=== PATIENT | female | born 1965 | race American Indian/Alaskan Native ===

== ENCOUNTER 2016-11-24 15:12 | Outpatient (CLI) | payer BC, MEDICAID ==
--- NOTE | 2016-11-25 08:27 | Mammography Report ---
BILATERAL MAMMOGRAM: FINDINGS: The breast tissue is heterogeneously dense, which could obscure detection of small masses (approximately 50%-75% glandular). No mass, distortion, suspicious calcification, or skin change is seen. There are no significant changes compared to the prior exam in November 2015. CAD was utilized. IMPRESSION: Negative mammogram. There is no mammographic evidence of malignancy. RECOMMENDATION: Follow-up per ACS guidelines. BI-RADS CATEGORY: 1 = Negative ACR BI-RADS MAMMOGRAPHIC CODES: 0 = Needs additional imaging evaluation; 1 = Negative; 2 = Benign; 3 = Probably benign; 4 = Suspicious; 5 = Malignant; 6 = Known biopsy-proven malignancy COMMENT: 1. Dense breast tissue, i.e., adenosis, fibrocystic changes, etc., may obscure an underlying neoplasm. 2. Approximately 10% of cancers are not detected with mammography. 3. A negative mammography report should not delay biopsy if a clinically suspicious mass is present. COMMENT: Patient follow-up letters are generated in [employer].
== END 2016-11-24 15:13 | disposition home or self-care (01) ==
LOC: SPVWC 15:12
PROVIDERS: ATTEND Obstetrics & Gynecology
DX: Z12.31 Encounter for screening mammogram for malignant neoplasm of breast (principal)
CPT/HCPCS: 77067; G0202

== ENCOUNTER 2017-06-14 09:41 | Day surgery (SDC) | payer BC ==
--- NOTE | 2017-06-14 09:36 | Short Stay Summary ---
Short Stay Documentation Date of service: 06/14/17 Narrative H&P: 51-year-old presents with a history of dysfunctional uterine bleeding. The patient has experienced approximately 6 weeks of daily vaginal bleeding that has been unresponsive to medical management. She has a history of abnormal bleeding in the past that resolved spontaneously. Her preoperative workup included endometrial biopsy and the ultrasound that was without evidence of leiomyomas. The patient complains of recent fatigue and lethargy. - History Principal diagnosis: dysfunctional uterine bleeding Past Medical History: other (anxiety; iron deficiency anemia) Past Surgical History: , Other (laparoscopy) Social history: single - Allergies and Medications Current Medications: Allergies No Known Allergies Allergy (Verified 06/13/17 11:12) Home Medications Medication Instructions Recorded Confirmed Last Taken Type ALPRAZolam [Xanax] 0.25 mg PO PRN PRN 11/21/13 06/13/17 06/29/16 History Omeprazole [PriLOSEC] 40 mg PO QDAY 11/21/13 06/13/17 07/18/16 History 40 Integra Plus Capsule 1 tab PO DAILY 07/19/16 06/13/17 07/19/16 History Cholecalciferol Vit D3 [Vitamin D3] 1,000 unit PO QDAY 06/13/17 06/13/17 Unknown History Cod Liver Oil 1 each PO DAILY 06/13/17 06/13/17 Unknown History Docusate Sodium [Colace] 100 mg PO DAILY 06/13/17 06/13/17 Unknown History Multivitamin Tab [Multiple Vitamin 1 each PO QDAY 06/13/17 06/13/17 Unknown History TAB (Theragran)] Active Medications Famotidine (Pepcid) 20 mg PO PREOP NR Stop: 06/14/17 15:00 Sodium Chloride (Nacl 0.9% 1000 Ml) 1,000 mls @ 75 mls/hr IV DIRECT CORNELL Midazolam HCl (Versed) 2 mg IV PREOP NR Stop: 06/14/17 23:59 - Physical exam General appearance: no acute distress Integumentary: no rash HEENT: Atraumatic Lungs: Clear to auscultation Breasts: deferred Heart: Regular rate Gastrointestinal: normal - Brief post op/procedure progress note Date of procedure: 06/14/17 Pre-op diagnosis: dysfunctional uterine bleeding Post-op diagnosis: same Procedure: Hysteroscopy Dilatation and curettage Endometrial ablation via NovaSure Anesthesia: NIDHI Surgeon: JACOB DONALDSON Estimated blood loss: minimal Pathology: list (endometrial curettings) Specimen disposition: to lab Condition: stable - Hospital course Hospital course: The patient was admitted the day of surgery and underwent a hysteroscopy and NovaSure. Please see operative note for details of surgery. Her postoperative course was uneventful. - Disposition Condition at discharge: Good Disposition: DC-01 TO HOME OR SELFCARE Short Stay Discharge Plan Activity: other (pelvic rest for 2 weeks) Diet: regular Additional Instructions: Patient may follow up with Dr. Olivarez in 2 weeks Prescriptions: Ibuprofen [Motrin] 800 mg PO Q8HR PRN #60 tablet PRN Reason: Pain oxyCODONE /ACETAMINOPHEN [Percocet 5/325] 1 tab PO Q6HR PRN #30 tablet PRN Reason: Pain
[~2017-06-14 09:41] MED LIST: NACL 0.9% 1000 ML 1,000 ML IV SCH; PEPCID PO NR
--- NOTE | 2017-06-14 10:31 | Anesthesia Consultation ---
Anesthesia Consult and Med Hx Date of service: 06/14/17 - Airway Anesthetic Teeth Evaluation: Good ROM Head & Neck: Adequate Mental/Hyoid Distance: Adequate Mallampati Class: Class II Intubation Access Assessment: Probably Good - Pulmonary Exam CTA: Yes - Cardiac Exam Cardiac Exam: RRR - Pre-Operative Health Status ASA Pre-Surgery Classification: ASA2 Proposed Anesthetic Plan: General - Pulmonary Hx Smoking: Yes (FORMER) Hx Asthma: No Hx Respiratory Symptoms: No SOB: No COPD: No Hx Pneumonia: No Hx Sleep Apnea: No - Cardiovascular System Hx Hypertension: No Hx Coronary Artery Disease: No Hx Heart Attack/AMI: No Hx Angina: No Hx Percutaneous Transluminal Coronary Angioplasty (PTCA): No Hx Cardia Arrhythmia: No Hx Pacemaker: No Hx Internal Defibrillator: No Hx Valvular Heart Disease: No Hx Heart Murmur: No Hx Peripheral Vascular Disease: No - Central Nervous System Hx Neuromuscular Disorder: No Hx Seizures: No CVA: No Hx Back Pain: No Hx Psychiatric Problems: Yes (Anxiety) - Gastrointestinal Hx Ulcer: No Hx Gastroesophageal Reflux Disease: Yes (well controlled with meds) - Endocrine Hx Renal Disease: No Hx End Stage Renal Disease: No Hx Cirrhosis: No Hx Liver Disease: No Hx Insulin Dependent Diabetes: No Hx Non-Insulin Dependent Diabetes: No Hx Thyroid Disease: No Hx Hypothyroidism: No Hx Hyperthyroidism: No - Hematic Hx Anemia: Yes (hx Iron transfusions, last was 05/2016) Hx Sickle Cell Disease: No - Other Systems Hx Alcohol Use: No Hx Substance Use: No Hx Cancer: No Hx Obesity: No
--- NOTE | 2017-06-14 10:32 | Anesthesia Day of Surgery ---
Anesthesia Day of Surgery - Day of Surgery Patient Examined: Yes Patient H&P Reviewed: Yes Patient is NPO: Yes
[2017-06-14] MEDS ORDERED: DILAUDID IV PRN (10:34)
[2017-06-14] MEDS: VERSED IV NR ×2 (10:37→12:19)
[2017-06-14 10:46] LABS: Basophils % (Auto) 1.2 % (0.0-1.8); Eosinophils % (Auto) 0.5 % (0.0-4.3); Hematocrit 40.2 % (30.3-42.9); Hemoglobin 13.8 gm/dl (10.1-14.3); Mean Corpuscular HGB Conc 34 % (30-34); Mean Corpuscular Hemoglobin 31 pg (28-32); Mean Corpuscular Volume 91 fl (79-97); Platelet Count 317 K/mm3 (140-440); Red Blood Count 4.43 M/mm3 (3.65-5.03); Red Cell Distribution Width 13.7 % (13.2-15.2); White Blood Count 5.1 K/mm3 (4.5-11.0)
[2017-06-14] MEDS ORDERED: TRANSDERM-SCOP TD NR (11:00)
[2017-06-14] MEDS ORDERED: ZOFRAN IV PRN (11:00)
[2017-06-14] MEDS ORDERED: DIPRIVAN 10 MG/ML IV ONE (11:16)
[2017-06-14] MEDS ORDERED: DILAUDID ONE ×2 (11:16→13:20)
[2017-06-14] MEDS ORDERED: XYLOCAINE MPF 2% ONE (11:16)
[2017-06-14] MEDS ORDERED: ROBINUL ONE (12:37)
[2017-06-14] MEDS ORDERED: NACL 0.9% IR ONE (13:04)
--- NOTE | 2017-06-14 13:07 | Operative Report ---
Operative Report Operative Report: Date of procedure: 06/14/2017 Pre-operative diagnosis: Dysfunctional uterine bleeding Post-operative diagnosis: Same as above Procedure name(s): Hysteroscopy; dilatation and curettage ; endometrial ablation via NovaSure Surgeon: Lana Vera M.D. Edi Consultant: None Anesthesia: Gen. endotracheal anesthesia Findings thickened and lush endometrial lining Pathology: Endometrial curettings Indication: 51-year-old 011 with a history of dysfunctional uterine bleeding. Procedure The patient was taken to the operating room and given general tracheal anesthesia without complication. The patient was prepped and draped in a normal sterile fashion. A bivalve speculum was placed in the patient's vagina single-tooth tenaculums placed on the anterior lip of the cervix. The cervical os was dilated with graduated dilators. A uterine sound was inserted. The hysteroscope was then placed. Insufflation of the uterine cavity was performed with normal saline. Gen. survey of the uterine cavity revealed thickened endometrium. The hysteroscope was then removed. A sharp curettage of the endometrial surface was performed. The NovaSure device was then inserted. The endometrial length was 6.0 cm and the uterine width was 3.4 cm. The device was engaged and it passed the surveillance of the uterine cavity. The NovaSure device was then deployed with a energy of 112 that lasted for 1 minute 4 seconds. The NovaSure device was then removed. The hysteroscope was again reinserted. There was evidence of charring of the endometrial surface. The remainder of the vaginal instruments were then removed atraumatically. The patient was then successfully extubated taken to the recovery room. All sponge laps and needle counts were correct 2.
[2017-06-14] MEDS: DILAUDID IV PRN ×2 (13:20→13:33)
--- NOTE | 2017-06-14 15:21 | Post Anesthesia Evaluation ---
- Post Anesthesia Evaluation Patient Participated: Yes Airway Patent: Yes Stable Respiratory Function: Yes Nausea/Vomiting: No Temp > 96.8F: Yes Pain Manageable: Yes Adequeate Hydration: Yes Anesthesia Complications: No Block Receding Appropriately: Not Applicable Patient on Ventilator: No
[2017-06-14 17:38] VITALS: BP 145/74
== END 2017-06-14 17:00 | disposition home or self-care (01) ==
LOC: OR 09:41
PROVIDERS: ATTEND Obstetrics & Gynecology
DX: N93.8 Other specified abnormal uterine and vaginal bleeding (principal); F41.9 Anxiety disorder, unspecified; K21.9 Gastro-esophageal reflux disease without esophagitis; D50.9 Iron deficiency anemia, unspecified; Z87.891 Personal history of nicotine dependence; Z98.890 Other specified postprocedural states; Z79.899 Other long term (current) drug therapy
CPT/HCPCS: 36415; 58563; 81025; 85025; 88305; 93005; 93010; A4217; J1170; J2250; J2704; J7030

== ENCOUNTER 2017-07-20 08:10 | Outpatient (CLI) | payer BC ==
--- NOTE | 2017-07-20 16:02 | Ultrasound Report ---
RIGHT DIGITAL DIAGNOSTIC MAMMOGRAM with CAD and RIGHT BREAST ULTRASOUND: 07/20/17 CLINICAL: Right palpable breast lump. COMPARISON:11/24/16 screening mammogram. FINDINGS: The breast is heterogeneously dense, which may obscures small masses.No mass, architectural distortion or suspicious calcifications . No mammographic finding at a right inner palpable marker at 3 o'clock. Ultrasound of the right breast in the area of the palpable marker demonstrated an oval hypoechoic mass contiguous to the dermis at 2 o'clock 7 cm from the nipple. It measures 8 x 3 x 5 mm and appears to have a communication with the epidermis. According to the patient, it has gotten smaller. IMPRESSION: A benign 8mm sebaceous cyst at 2 o'clock right breast 7 cm from the nipple. BI-RADS CATEGORY: 2 -- Benign RECOMMENDATION: Clinical follow-up of the palpable area and routine mammographic screening based on ACS guidelines. ACR BI-RADS MAMMOGRAPHIC CODES: 0 = Needs additional imaging evaluation; 1 = Negative; 2 = Benign; 3 = Probably benign; 4 = Suspicious; 5 = Malignant; 6 = Known biopsy-proven malignancy COMMENT: 1. Dense breast tissue, i.e., adenosis, fibrocystic changes, etc., may obscure an underlying neoplasm. 2. Approximately 10% of cancers are not detected with mammography. 3. A negative mammography report should not delay biopsy if a clinically suspicious mass is present. COMMENT: Patient follow-up letters are generated by our [employer] application.
== END 2017-07-20 08:11 | disposition home or self-care (01) ==
LOC: SPVWC 08:10
PROVIDERS: ATTEND Obstetrics & Gynecology
DX: N63 Unspecified lump in breast (principal); N60.81 Other benign mammary dysplasias of right breast
CPT/HCPCS: 76642; G0206

== ENCOUNTER 2018-01-04 08:19 | Outpatient (CLI) | payer BC ==
--- NOTE | 2018-01-05 12:44 | Mammography Report ---
BILATERAL DIGITAL SCREENING MAMMOGRAM with CAD: 01/04/18 08:19:00 CLINICAL: Routine screening.Chronic right nipple inversion. COMPARISON:11/24/16 FINDINGS: The breasts are heterogeneously dense, which may obscure small masses.Stable partial inversion of the right nipple. No mass, architectural distortion or suspicious calcifications. IMPRESSION: No mammographic evidence of malignancy. BI-RADS CATEGORY: 1 - - Negative RECOMMENDATION: Routine mammographic screening in one year.
== END 2018-01-04 08:20 | disposition home or self-care (01) ==
LOC: SPVWC 08:19
PROVIDERS: ATTEND Internal Medicine
DX: Z12.31 Encounter for screening mammogram for malignant neoplasm of breast (principal)
CPT/HCPCS: 77067

== ENCOUNTER 2018-01-09 11:17 | Outpatient (CLI) | payer BC ==
[2018-01-09 12:34] LABS: Hepatitis A Antibody IgM Non-Reactive (NonReactive); Hepatitis B Core IgM Non-Reactive (NonReactive); Hepatitis B Surface Antigen Non-Reactive (Negative); Hepatitis C Virus Antibody Non-Reactive (NonReactive)
== END 2018-01-09 11:18 | disposition home or self-care (01) ==
LOC: LAB 11:17
PROVIDERS: ATTEND Obstetrics & Gynecology
DX: Z01.419 Encounter for gynecological examination (general) (routine) without abnormal findings (principal); Z71.89 Other specified counseling; Z79.899 Other long term (current) drug therapy
CPT/HCPCS: 36415; 80074; 86592; 87529; 87806

== ENCOUNTER 2018-05-20 10:55 | Emergency (ER) | payer BC ==
[2018-05-20 11:05] VITALS: BP 149/72
[2018-05-20 12:17] LABS: Basophils # (Auto) 0.1 K/mm3 (0.0-0.1); Basophils % (Auto) 1.2 % (0.0-1.8); Eosinophils % (Auto) 0.9 % (0.0-4.3); Hematocrit 42.2 % (30.3-42.9); Hemoglobin 14.1 gm/dl (10.1-14.3); Lymphocytes # (Auto) 1.2 K/mm3 (1.2-5.4); Lymphocytes % (Auto) 23.7 % (13.4-35.0); Mean Corpuscular HGB Conc 33 % (30-34); Mean Corpuscular Hemoglobin 31 pg (28-32); Mean Corpuscular Volume 92 fl (79-97); Monocytes # (Auto) 0.4 K/mm3 (0.0-0.8); Platelet Count 263 K/mm3 (140-440); Red Blood Count 4.61 M/mm3 (3.65-5.03); Red Cell Distribution Width 13.3 % (13.2-15.2)
[2018-05-20 12:33] LABS: BUN/Creatinine Ratio 11; Blood Urea Nitrogen 8 mg/dL (7-17); Calcium 9.8 mg/dL (8.4-10.2); Hemolysis Index 7
--- NOTE | 2018-05-20 13:56 | Emergency Department Report ---
ED Palpitations HPI - General Chief Complaint: Arrhythmia/Palpitations Stated Complaint: PALPATATIONS Time Seen by Provider: 05/20/18 13:35 Source: patient Mode of arrival: Ambulatory Limitations: No Limitations - History of Present Illness Initial Comments: Patient is a 52-year-old [place] female who is presenting with palpitations. Patient states for the past 2 days she's been feeling a flutter in her chest that happens intermittently but is frequent. Patient states his shortness of breath fevers chills at this time. Patient also chronically has some neck discomfort with a little bit of tingling in the left upper extremity. Patient denies any crushing chest pain nausea vomiting at this time. MD Complaint: rapid heart beat, "skipped beats" - Related Data Home Medications Medication Instructions Recorded Confirmed Last Taken ALPRAZolam [Xanax] 0.25 mg PO PRN PRN 11/21/13 06/13/17 06/29/16 Omeprazole [PriLOSEC] 40 mg PO QDAY 11/21/13 06/14/17 06/14/17 07:00 Integra Plus Capsule 1 tab PO DAILY 07/19/16 06/13/17 06/13/17 Cholecalciferol Vit D3 [Vitamin D3] 1,000 unit PO QDAY 06/13/17 06/13/17 Cod Liver Oil 1 each PO DAILY 06/13/17 06/13/17 06/13/17 Docusate Sodium [Colace] 100 mg PO DAILY 06/13/17 06/13/17 06/13/17 Multivitamin Tab [Multiple Vitamin 1 each PO QDAY 06/13/17 06/13/17 06/13/17 TAB (Theragran)] Previous Rx's Medication Instructions Recorded Last Taken Type Ibuprofen [Motrin] 800 mg PO Q8HR PRN #60 tablet 06/14/17 Unknown Rx oxyCODONE /ACETAMINOPHEN [Percocet 1 tab PO Q6HR PRN #30 tablet 06/14/17 Unknown Rx 5/325] Metoprolol [Lopressor] 12.5 mg PO BID #30 tablet 05/20/18 Unknown Rx Allergies Allergy/AdvReac Type Severity Reaction Status Date / Time No Known Allergies Allergy Verified 06/13/17 11:12 ED Review of Systems ROS: Stated complaint: PALPATATIONS Other details as noted in HPI Comment: All other systems reviewed and negative ED Past Medical Hx - Past Medical History Hx Hypertension: No Hx Heart Attack/AMI: No Hx GERD: Yes Hx Liver Disease: No Hx Renal Disease: No Hx Sickle Cell Disease: No Hx Headaches / Migraines: Yes Hx Seizures: No Hx Asthma: No Hx COPD: No - Surgical History Hx Pacemaker: No Hx Internal Defibrillator: No Additional Surgical History: Iron deficiency anemia - Social History Smoking Status: Never Smoker Substance Use Type: None - Medications Home Medications: Home Medications Medication Instructions Recorded Confirmed Last Taken Type ALPRAZolam [Xanax] 0.25 mg PO PRN PRN 11/21/13 06/13/17 06/29/16 History Omeprazole [PriLOSEC] 40 mg PO QDAY 11/21/13 06/14/17 06/14/17 07:00 History Integra Plus Capsule 1 tab PO DAILY 07/19/16 06/13/17 06/13/17 History Cholecalciferol Vit D3 [Vitamin D3] 1,000 unit PO QDAY 06/13/17 06/13/17 History Cod Liver Oil 1 each PO DAILY 06/13/17 06/13/17 06/13/17 History Docusate Sodium [Colace] 100 mg PO DAILY 06/13/17 06/13/17 06/13/17 History Multivitamin Tab [Multiple Vitamin 1 each PO QDAY 06/13/17 06/13/17 06/13/17 History TAB (Theragran)] Ibuprofen [Motrin] 800 mg PO Q8HR PRN #60 tablet 06/14/17 Unknown Rx oxyCODONE /ACETAMINOPHEN [Percocet 1 tab PO Q6HR PRN #30 tablet 06/14/17 Unknown Rx 5/325] Metoprolol [Lopressor] 12.5 mg PO BID #30 tablet 05/20/18 Unknown Rx ED Physical Exam - General Limitations: No Limitations General appearance: alert, in no apparent distress - Head Head exam: Present: atraumatic, normocephalic - Eye Eye exam: Present: normal appearance - ENT ENT exam: Present: mucous membranes moist - Neck Neck exam: Present: normal inspection - Respiratory Respiratory exam: Present: normal lung sounds bilaterally. Absent: respiratory distress, wheezes, rales, rhonchi - Cardiovascular Cardiovascular Exam: Present: regular rate, normal rhythm. Absent: systolic murmur, diastolic murmur, rubs, gallop - GI/Abdominal GI/Abdominal exam: Present: soft, normal bowel sounds. Absent: distended, tenderness, guarding, rebound - Extremities Exam Extremities exam: Present: normal inspection - Back Exam Back exam: Present: normal inspection - Neurological Exam Neurological exam: Present: alert, oriented X3 - Psychiatric Psychiatric exam: Present: normal affect, normal mood - Skin Skin exam: Present: warm, dry, intact, normal color. Absent: rash ED Course Vital Signs 05/20/18 10:59 Temperature 98 F Pulse Rate 85 Respiratory 16 Rate Blood Pressure 149/72 O2 Sat by Pulse 100 Oximetry ED Medical Decision Making - Lab Data Result diagrams: 05/20/18 12:01 05/20/18 12:01 Lab Results 05/20/18 05/20/18 Range/Units 12:01 12:01 WBC 5.1 (4.5-11.0) K/mm3 RBC 4.61 (3.65-5.03) M/mm3 Hgb 14.1 (10.1-14.3) gm/dl Hct 42.2 (30.3-42.9) % MCV 92 (79-97) fl MCH 31 (28-32) pg MCHC 33 (30-34) % RDW 13.3 (13.2-15.2) % Plt Count 263 (140-440) K/mm3 Lymph % (Auto) 23.7 (13.4-35.0) % Hudson % (Auto) 8.0 H (0.0-7.3) % Eos % (Auto) 0.9 (0.0-4.3) % Baso % (Auto) 1.2 (0.0-1.8) % Lymph # 1.2 (1.2-5.4) K/mm3 Hudson # 0.4 (0.0-0.8) K/mm3 Eos # 0.0 (0.0-0.4) K/mm3 Baso # 0.1 (0.0-0.1) K/mm3 Seg Neutrophils % 66.2 (40.0-70.0) % Seg Neutrophils # 3.4 (1.8-7.7) K/mm3 Sodium 139 (137-145) mmol/L Potassium 3.8 (3.6-5.0) mmol/L Chloride 98.7 (98-107) mmol/L Carbon Dioxide 28 (22-30) mmol/L Anion Gap 16 mmol/L BUN 8 (7-17) mg/dL Creatinine 0.7 (0.7-1.2) mg/dL Estimated GFR > 60 ml/min BUN/Creatinine Ratio 11 % Glucose 92 (65-100) mg/dL Calcium 9.8 (8.4-10.2) mg/dL Troponin T < 0.010 (0.00-0.029) ng/mL - EKG Data -: EKG Interpreted by La - EKG Data 05/20/18 13:56 Patient is a sinus rhythm rate of 63 and normal axis normal intervals no ST segment changes. Patient does has occasional PVC present. Time of interpretation is 1138 - Medical Decision Making R studies are within normal limits. Patient was started on a low-dose beta stefano and be discharged home with follow-up with cardiology. Critical care attestation.: If time is entered above; I have spent that time in minutes in the direct care of this critically ill patient, excluding procedure time. ED Disposition Clinical Impression: PVC (premature ventricular contraction) Disposition: DC-01 TO HOME OR SELFCARE Is pt being admited?: No Does the pt Need Aspirin: No Condition: Stable Instructions: Palpitations (ED) Additional Instructions: Please follow-up with your cardiology office for echocardiogram Prescriptions: Metoprolol [Lopressor] 12.5 mg PO BID #30 tablet Referrals: PRIMARY CARE, [Primary Care Provider] - 3-5 Days
== END 2018-05-20 14:15 | disposition home or self-care (01) ==
LOC: ED 10:55
DX: I49.3 Ventricular premature depolarization (principal); K21.9 Gastro-esophageal reflux disease without esophagitis; G43.909 Migraine, unspecified, not intractable, without status migrainosus
CPT/HCPCS: 36415; 80048; 84484; 85025; 93005; 93010; 99284

== ENCOUNTER 2018-05-31 10:28 | Outpatient (CLI) | payer BC ==
--- NOTE | 2018-06-01 00:13 | Treadmill Report ---
EXERCISE STRESS TEST REPORT The patient exercised for 12 minutes of Lucas protocol, completing stage 4 and achieving 13 mets. Peak heart rate 166 beats per minute. Peak blood pressure 155/83. There was no chest pain. Baseline ECG was sinus rhythm. With exercise, there were no ST changes of ischemia. No significant dysrhythmias were noted. CONCLUSION: 1. Very good exercise capacity. 2. No chest pain. 3. No ST changes of ischemia. 4. No significant dysrhythmias. This is a normal exercise ECG test. JOB# [id number] CA/NTS
== END 2018-05-31 10:29 | disposition home or self-care (01) ==
LOC: ECHO 10:28
PROVIDERS: ATTEND Internal Medicine
DX: R00.2 Palpitations (principal)
CPT/HCPCS: 93017; 93306

== ENCOUNTER 2018-11-28 09:47 | Emergency (ER) | payer BC ==
[2018-11-28] MEDS ORDERED: NACL 0.9% 1000 ML 1,000 ML IV ONE ×2 (10:38→12:19)
--- NOTE | 2018-11-28 10:47 | Emergency Department Report ---
ED Dizziness HPI - General Chief Complaint: Dizziness Stated Complaint: HOT/COLD DIZZY Time Seen by Provider: 11/28/18 10:17 Source: patient Mode of arrival: Ambulatory Limitations: No Limitations - History of Present Illness Initial Comments: Mrs. Bishop is a very pleasant 53-year-old female with history of anxiety, iron deficiency anemia and GERD who presents with generalized malaise. After presentation today, she felt hot flushed. She felt as if she was going to pass out. 3 years ago she had a syncopal episode related to severe anemia requiring urgent endometrial ablation. She has had several iron infusions. She has not received a blood transfusion. Her PCP Dr. Juanjose Lee discontinued iron supplementation of July. Her hemoglobin was 13 at that time. Since the endometrial ablation 1 year ago, she has not had any vaginal bleeding. She has been taking amoxicillin for sinus infection scar by her PCP she's used Nasonex intermittently for nasal congestion. She has had left ear pressure fullness. Today she's felt lightheaded. UPon standing, her heart races. For anxiety she takes Xanax 1-2 times a day. Anxiety began after the of her 2012. She has been attempting to wean herself off of Xanax. She takes Xanax now sporadically. She uses Xanax more often during the holidays. 2 weeks ago she underwent root canal. With previous episode of syncope 3 years ago, she had full workup for blood loss and syncope including EGD colonoscopy and cardiac stress test. All tests were normal. 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 She has one son age 17 -: Gradual, days(s) (several) Timing: gradual onset Description: lightheadedness History of Same: Yes Severity: mild Improves With: rest Worsens With: position Associated Symptoms: fever/chills, malaise - Related Data Home Medications Medication Instructions Recorded Confirmed Last Taken ALPRAZolam [Xanax] 0.25 mg PO PRN PRN 11/21/13 06/13/17 06/29/16 Omeprazole [PriLOSEC] 40 mg PO QDAY 11/21/13 06/14/17 06/14/17 07:00 Integra Plus Capsule 1 tab PO DAILY 07/19/16 06/13/17 06/13/17 Cholecalciferol Vit D3 [Vitamin D3] 1,000 unit PO QDAY 06/13/17 06/13/17 06/13/17 Cod Liver Oil 1 each PO DAILY 06/13/17 06/13/17 06/13/17 Docusate Sodium [Colace] 100 mg PO DAILY 06/13/17 06/13/17 06/13/17 Multivitamin Tab [Multiple Vitamin 1 each PO QDAY 06/13/17 06/13/17 06/13/17 TAB (Theragran)] Previous Rx's Medication Instructions Recorded Last Taken Type Ibuprofen [Motrin] 800 mg PO Q8HR PRN #60 tablet 06/14/17 Unknown Rx oxyCODONE /ACETAMINOPHEN [Percocet 1 tab PO Q6HR PRN #30 tablet 06/14/17 Unknown Rx 5/325] Metoprolol [Lopressor] 12.5 mg PO BID #30 tablet 05/20/18 Unknown Rx Allergies Allergy/AdvReac Type Severity Reaction Status Date / Time No Known Allergies Allergy Verified 11/28/18 09:54 ED Review of Systems ROS: Stated complaint: HOT/COLD DIZZY Other details as noted in HPI Comment: All other systems reviewed and negative Constitutional: chills, other (feeling hot). denies: malaise ENT: other (left ear pressure) Cardiovascular: palpitations. denies: chest pain Gastrointestinal: denies: abdominal pain Neurological: headache (facial pressure, frontal headache). denies: numbness, paresthesias, confusion ED Past Medical Hx - Past Medical History Previous Medical History?: Yes Hx Hypertension: No Hx Heart Attack/AMI: No Hx GERD: Yes Hx Liver Disease: No Hx Renal Disease: No Hx Sickle Cell Disease: No Hx Headaches / Migraines: Yes Hx Seizures: No Hx Asthma: No Hx COPD: No Additional medical history: anemia - Surgical History Hx Pacemaker: No Hx Internal Defibrillator: No Additional Surgical History: uterine ablation, C/S - Social History Smoking Status: Never Smoker Substance Use Type: None - Medications Home Medications: Home Medications Medication Instructions Recorded Confirmed Last Taken Type ALPRAZolam [Xanax] 0.25 mg PO PRN PRN 11/21/13 06/13/17 06/29/16 History Omeprazole [PriLOSEC] 40 mg PO QDAY 11/21/13 06/14/17 06/14/17 07:00 History Integra Plus Capsule 1 tab PO DAILY 07/19/16 06/13/17 06/13/17 History Cholecalciferol Vit D3 [Vitamin D3] 1,000 unit PO QDAY 06/13/17 06/13/17 06/13/17 History Cod Liver Oil 1 each PO DAILY 06/13/17 06/13/17 06/13/17 History Docusate Sodium [Colace] 100 mg PO DAILY 06/13/17 06/13/17 06/13/17 History Multivitamin Tab [Multiple Vitamin 1 each PO QDAY 06/13/17 06/13/17 06/13/17 History TAB (Theragran)] Ibuprofen [Motrin] 800 mg PO Q8HR PRN #60 tablet 06/14/17 Unknown Rx oxyCODONE /ACETAMINOPHEN [Percocet 1 tab PO Q6HR PRN #30 tablet 06/14/17 Unknown Rx 5/325] Metoprolol [Lopressor] 12.5 mg PO BID #30 tablet 05/20/18 Unknown Rx ED Physical Exam - General Limitations: No Limitations General appearance: alert, in no apparent distress - Head Head exam: Present: atraumatic, normocephalic - Eye Eye exam: Present: normal appearance - ENT ENT exam: Present: mucous membranes moist, TM's normal bilaterally - Neck Neck exam: Present: normal inspection, full ROM. Absent: tenderness, meningismus - Respiratory Respiratory exam: Present: normal lung sounds bilaterally. Absent: respiratory distress, wheezes, rales, rhonchi - Cardiovascular Cardiovascular Exam: Present: regular rate, normal rhythm, normal heart sounds. Absent: systolic murmur, diastolic murmur, rubs, gallop - GI/Abdominal GI/Abdominal exam: Present: soft, normal bowel sounds. Absent: distended, tenderness, guarding, rebound - Extremities Exam Extremities exam: Present: normal inspection - Back Exam Back exam: Present: normal inspection - Neurological Exam Neurological exam: Present: alert, oriented X3 - Psychiatric Psychiatric exam: Present: normal affect, normal mood - Skin Skin exam: Present: warm, dry, intact, normal color. Absent: rash ED Course Vital Signs 11/28/18 09:54 Temperature 97.9 F Pulse Rate 72 Respiratory 18 Rate Blood Pressure 118/40 O2 Sat by Pulse 100 Oximetry ED Medical Decision Making - Lab Data Result diagrams: 11/28/18 Unknown 11/28/18 Unknown Laboratory Results - last 24 hr 11/28/18 11/28/18 Unknown Unknown WBC 5.6 RBC 4.09 Hgb 12.3 Hct 36.9 MCV 90 MCH 30 MCHC 33 RDW 13.4 Plt Count 264 Lymph % (Auto) 15.6 [place] % (Auto) 8.7 H Eos % (Auto) 0.5 Baso % (Auto) 0.9 Lymph # 0.9 L [place] # 0.5 Eos # 0.0 Baso # 0.1 Seg Neutrophils % 74.3 H Seg Neutrophils # 4.2 Sodium 140 Potassium 3.6 Chloride 101.5 Carbon Dioxide 27 Anion Gap 15 BUN 9 Creatinine 0.7 Estimated GFR > 60 BUN/Creatinine Ratio 13 Glucose 81 Calcium 9.2 - EKG Data 11/28/18 10:45 Time obtained 0957 NSR 65 bpm nl axis nl intervals no ST elevation +LVH no signs of ischemia unchanged from 05/20/2018 PVC was present on previous EKG - Radiology Data Radiology results: image reviewed interpreted by me: Chest x-ray PA lateral 2 view radiographs: No infiltrate normal cardiac silhouette no pneumothorax no acute process - Medical Decision Making 1. lightheadness with hypotension DPB 40 mm Hg, suggestive of dehydration, has had previous ED with significant dehydration, normal H/H, normal electrolytes no evidence of ACS/CVA/arrhythmia/PE given IV hydration recommended taking a week off from exercise. Mrs. Bishop exercises for 1.5 hours 5 times of week even while recovering from sinus infection Critical care attestation.: If time is entered above; I have spent that time in minutes in the direct care of this critically ill patient, excluding procedure time. ED Disposition Clinical Impression: Dehydration, Orthostatic hypotension, Near syncope Disposition: DC-01 TO HOME OR SELFCARE Is pt being admited?: No Does the pt Need Aspirin: No Condition: Stable Instructions: Dehydration (ED), Hypotension (ED) Referrals: JUANJOSE LEIJA JR, MD [Staff Physician] - [facility] Forms: Work/School Release Form(ED)
[2018-11-28 11:23] LABS: Basophils # (Auto) 0.1 K/mm3 (0.0-0.1); Basophils % (Auto) 0.9 % (0.0-1.8); Eosinophils % (Auto) 0.5 % (0.0-4.3); Hematocrit 36.9 % (30.3-42.9); Hemoglobin 12.3 gm/dl (10.1-14.3); Lymphocytes # (Auto) 0.9 K/mm3 (1.2-5.4); Lymphocytes % (Auto) 15.6 % (13.4-35.0); Mean Corpuscular HGB Conc 33 % (30-34); Mean Corpuscular Volume 90 fl (79-97); Monocytes # (Auto) 0.5 K/mm3 (0.0-0.8); Monocytes % (Auto) 8.7 % (0.0-7.3); Platelet Count 264 K/mm3 (140-440); Red Blood Count 4.09 M/mm3 (3.65-5.03); Red Cell Distribution Width 13.4 % (13.2-15.2)
[2018-11-28 11:44] LABS: BUN/Creatinine Ratio 13; Blood Urea Nitrogen 9 mg/dL (7-17); Calcium 9.2 mg/dL (8.4-10.2); Hemolysis Index 10
--- NOTE | 2018-11-28 13:30 | XRay Report ---
AP CHEST: HISTORY: Respiratory infection AP view of the chest demonstrates a normal mediastinal and cardiac contour with clear lungs and normal bony and soft tissue structures. IMPRESSION: Unremarkable AP chest.
[2018-11-28 14:36] VITALS: BP 137/65
== END 2018-11-28 14:35 | disposition home or self-care (01) ==
LOC: ED 09:47
DX: I95.1 Orthostatic hypotension (principal); R55 Syncope and collapse; E86.0 Dehydration; K21.9 Gastro-esophageal reflux disease without esophagitis; G43.909 Migraine, unspecified, not intractable, without status migrainosus
CPT/HCPCS: 36415; 71045; 80048; 85025; 93005; 93010; 96360; 96361; 99284; J7030

== ENCOUNTER 2019-01-04 13:54 | Outpatient (CLI) | payer BC ==
--- NOTE | 2019-01-04 16:36 | Mammography Report ---
BILATERAL DIGITAL SCREENING MAMMOGRAM with CAD: 01/04/19 13:54:00 CLINICAL: Routine screening. COMPARISON:01/04/18 and 11/24/16 FINDINGS: The breasts are heterogeneously dense, which may obscure small masses. No mass, architectural distortion or suspicious calcifications. IMPRESSION: No mammographic evidence of malignancy. BI-RADS CATEGORY: 1 - - Negative RECOMMENDATION: Routine mammographic screening in one year. COMMENT: Patient follow-up letters are generated by our [employer] application.
== END 2019-01-04 13:55 | disposition home or self-care (01) ==
LOC: SPVWC 13:54
PROVIDERS: ATTEND Internal Medicine
DX: Z12.31 Encounter for screening mammogram for malignant neoplasm of breast (principal)
CPT/HCPCS: 77067

== ENCOUNTER 2019-01-10 10:24 | Outpatient (CLI) | payer BC | END 2019-01-10 10:25 | disposition home or self-care (01) | LOC: LAB 10:24 | PROVIDERS: ATTEND Obstetrics & Gynecology | DX: Z01.419 Encounter for gynecological examination (general) (routine) without abnormal findings (principal) | CPT/HCPCS: 36415 ==

== ENCOUNTER 2019-05-31 14:12 | Outpatient (CLI) | payer BC ==
--- NOTE | 2019-06-03 10:28 | Mammography Report ---
DEXA BONE DENSITY SCAN INDICATION: ASYMPTOMATIC POSTMENOPAUSAL STATUS. COMPARISON: None available. LUMBAR SPINE (L1-L4): Bone mineral density (BMD) is 1.166 g/cm2. T-score is +0.1 (standard deviations of Young Adult mean). Z-score is +1.3 (standard deviations of Age Matched mean). LEFT HIP: Total bone mineral density (BMD) is 0.982 g/cm2. T-score is -0.3 (standard deviations of Young Adult mean). Z-score is +0.2 (standard deviations of Age Matched mean). LEFT FEMORAL NECK: Bone mineral density (BMD) is 0.811 g/cm2. T-score is -1.0 (standard deviations of Young Adult mean). Z-score is -0.2 (standard deviations of Age Matched mean). IMPRESSION: WHO classification: Normal with average fracture risk based on spine and left hip measurements. Signer Name: Gurvinder Mojica MD Signed: 06/03/2019 10:24 AM Workstation Name: [id number]
== END 2019-05-31 14:13 | disposition home or self-care (01) ==
LOC: SPVWC 14:12
PROVIDERS: ATTEND Internal Medicine
DX: Z78.0 Asymptomatic menopausal state (principal); K21.9 Gastro-esophageal reflux disease without esophagitis
CPT/HCPCS: 77080

== ENCOUNTER 2019-07-16 13:02 | Outpatient (CLI) | payer BC ==
--- NOTE | 2019-07-16 13:45 | XRay Report ---
LEFT SHOULDER, 3 VIEWS INDICATION: LEFT ANTERIOR SHOULDER PAIN. COMPARISON: None. IMPRESSION: No acute osseous or soft tissue abnormality. No significant DJD. Signer Name: Yosef Rush Jr, MD Signed: 07/16/2019 1:41 PM Workstation Name: [id number]
== END 2019-07-16 13:03 | disposition home or self-care (01) ==
LOC: XRAY 13:02
PROVIDERS: ATTEND Internal Medicine
DX: M25.512 Pain in left shoulder (principal); K21.9 Gastro-esophageal reflux disease without esophagitis

== ENCOUNTER 2019-08-02 09:37 | Outpatient (CLI) | payer BC ==
[2019-08-02] MEDS ORDERED: LIDOCAINE (1%) 10 MG/1 ML VIAL 20 ML MDV ONE (10:21)
--- NOTE | 2019-08-02 11:23 | Fluoroscopy Report ---
ARTHROGRAM OF THE LEFT SHOULDER HISTORY: M25.512. Patient with generalized left shoulder pain after recent exercise-related injury COMPARISON: None. CONSENT: The risks,benefits, and alternatives of theprocedure were discussed with the patient who agr eed toproceed. TECHNIQUE: The patient was placed supine on the fluoroscopy table. The left glenohumeral joint was i dentified and overlying skin demarcated under fluoroscopic guidance. Area was prepped and draped in t he usual sterile fashion. Time-out was performed. Skin and subcutaneous tissues were anesthetized w ith lidocaine. A 22-gauge spinal needle was placed into the joint space under fluoroscopic guidance. Dilute gadolini um mixture was then injected. The needle was removed and the patient tolerated the procedure well wi thout immediate complication. FLUOROSCOPIC TIME: 1.0 minutes # IMAGES: 3 CONTRAST VOLUME: 10 ml dilute gadolinium mixture. IMPRESSION: 1. Technically successful arthrogram. See post arthrogram Signer Name: Gerardo Patel MD Signed: 08/02/2019 11:19 AM Workstation Name: [id number]
--- NOTE | 2019-08-02 14:17 | Magnetic Resonance Report ---
MR UE joint LT w con INDICATION / CLINICAL INFORMATION: M25.512 PAIN LEFT SHOULDER. TECHNIQUE: Multiplanar, multisequence MR images were obtained. COMPARISON: Radiographs 3 days prior. FINDINGS: There is no significant acromioclavicular degenerative change. There is mild fluid and contrast in th e subdeltoid/subacromial space. There is relatively focal full-thickness tear through the distal supraspinatus tendon posterior fiber s (seen best on sagittal images 16-17). There are delaminating components of this tear tracking into the medial supraspinatus and infraspinatus tendons, toward the musculotendinous junctions. Torn tendo n fibers are retracted medially approximately 8 mm. No supraspinatus or infraspinatus muscle atrophy is seen. Teres minor and subscapularis tendons are intact. There is mild tendinosis within the intra-articular portion of the long head biceps tendon. There is blunting of the posterior and superior labrum. There is moderate diffuse cartilage thinning at the gl enohumeral articulation. No fracture or contusion is seen. IMPRESSION: 1. Full-thickness tear through the distal supraspinatus tendon with delaminating component tracking i nto the posterior supraspinatus and anterior infraspinatus musculotendinous junctions. There is minim al retraction of torn tendon fibers without cuff muscle atrophy. 2. Blunting of the posterior superior labrum is likely due to chronic tearing. There is moderate diff use cartilage thinning at the glenohumeral articulation. 3. Tendinosis of the intra-articular portion of the long head biceps tendon. Signer Name: Srinivasa Hawley MD Signed: 08/02/2019 2:12 PM Workstation Name: [id number]
== END 2019-08-02 09:38 | disposition home or self-care (01) ==
LOC: FLUORO 09:37
PROVIDERS: ATTEND Orthopaedic Surgery
DX: M25.512 Pain in left shoulder (principal); D50.0 Iron deficiency anemia secondary to blood loss (chronic); K21.9 Gastro-esophageal reflux disease without esophagitis; F41.9 Anxiety disorder, unspecified; Z98.891 History of uterine scar from previous surgery; Z79.899 Other long term (current) drug therapy; Z98.890 Other specified postprocedural states
CPT/HCPCS: 23350; 73040; 73222; A9577; Q9965

== ENCOUNTER 2019-11-26 10:53 | Outpatient (CLI) | payer BC ==
[2019-11-26 11:29] LABS: Eosinophils % (Auto) 0.6 % (0.0-4.3); Hematocrit 39.9 % (30.3-42.9); Hemoglobin 13.4 gm/dl (10.1-14.3); Lymphocytes # (Auto) 1.6 K/mm3 (1.2-5.4); Lymphocytes % (Auto) 32.3 % (13.4-35.0); Mean Corpuscular HGB Conc 34 % (30-34); Mean Corpuscular Volume 90 fl (79-97); Monocytes # (Auto) 0.4 K/mm3 (0.0-0.8); Monocytes % (Auto) 8.9 % (0.0-7.3); Platelet Count 289 K/mm3 (140-440); Red Blood Count 4.43 M/mm3 (3.65-5.03); Red Cell Distribution Width 13.1 % (13.2-15.2)
[2019-11-26 11:47] LABS: Alanine Aminotransferase 23 units/L (7-56); Albumin 4.3 g/dL (3.9-5); BUN/Creatinine Ratio 13; Blood Urea Nitrogen 9 mg/dL (7-17); Calcium 10.1 mg/dL (8.4-10.2); Chol/HDL Ratio 3.56 %; HDL Cholesterol 57 mg/dL (40-59); Hemolysis Index 12; LDL Cholesterol,Direct 151 mg/dL (50-130)
== END 2019-11-26 10:54 | disposition home or self-care (01) ==
LOC: LAB 10:53
PROVIDERS: ATTEND Internal Medicine
DX: Z00.00 Encounter for general adult medical examination without abnormal findings (principal)
CPT/HCPCS: 36415; 80053; 80061; 84443; 85025

== ENCOUNTER 2020-01-06 15:43 | Outpatient (CLI) | payer BC ==
--- NOTE | 2020-01-07 14:01 | Mammography Report ---
DIGITAL SCREENING MAMMOGRAM WITH CAD, 01/06/2020 INDICATION: Routine screening mammography. TECHNIQUE: Digital bilateral 2D mammography was obtained in the craniocaudal and mediolateral obliq ue projections. This examination was interpreted with the benefit of Computer-Aided Detection analysi s. COMPARISON: 01/04/2019 FINDINGS: Breast Density: The breasts are heterogeneously dense, which may obscure small masses. A left upper asymmetry on the MLO view requires additional imaging. No architectural distortion or amador spicious calcifications of the left breast. There is no evidence of dominant mass, suspicious calcifi cations or architectural distortion in the right breast. IMPRESSION: Left asymmetry requiring additional imaging. Recommend recall for left lateral and spot c ompression MLO views and left breast ultrasound if needed. Follow up recommendation: Special View: Spot Category 0: Incomplete. Needs additional imaging evaluation and/or prior mammograms for comparison. A "normal" or negative report should not discourage follow up or biopsy of a clinically significant f inding. A written summary of these findings will be mailed to the patient. The patient will be entered into a mammography reporting system which will generate a reminder letter for the patient's next appointmen t at the appropriate interval. The [employer] recommends yearly mammograms starting at age 40 and continuing as l frank as a woman is in good health. Breast MRI is recommended for women with an approximate 20-25% or greater lifetime risk of breast cancer, including women with a strong family history of breast or ova pricilla cancer or who have been treated for Hodgkin's disease. Signer Name: Gurvinder Mojica MD Signed: 01/07/2020 1:57 PM Workstation Name: [id number]
== END 2020-01-06 15:44 | disposition home or self-care (01) ==
LOC: SPVWC 15:43
PROVIDERS: ATTEND Internal Medicine
DX: Z12.31 Encounter for screening mammogram for malignant neoplasm of breast (principal)
CPT/HCPCS: 77067

== ENCOUNTER 2020-01-13 10:24 | Outpatient (CLI) | payer BC | END 2020-01-13 10:25 | disposition home or self-care (01) | LOC: LAB 10:24 | PROVIDERS: ATTEND Obstetrics & Gynecology | DX: Z01.419 Encounter for gynecological examination (general) (routine) without abnormal findings (principal); A64 Unspecified sexually transmitted disease | CPT/HCPCS: 36415 ==

== ENCOUNTER 2020-01-20 08:41 | Outpatient (CLI) | payer BC ==
--- NOTE | 2020-01-20 10:10 | Mammography Report ---
LEFT DIGITAL DIAGNOSTIC MAMMOGRAM WITH CAD 01/20/2020 LEFT COMPLETE BREAST ULTRASOUND INDICATION: Recall for asymmetry. -Abn Mammo TECHNIQUE: Digital left mammographic imaging was performed. Spot compression views were obtained. Co mplete ultrasound of all four (4) quadrants was performed. This examination was interpreted with the benefit of Computer-Aided Detection (CAD) analysis. COMPARISON: 01/06/2020 FINDINGS: Breast Density: The breasts are heterogeneously dense, which may obscure small masses. MAMMOGRAPHIC FINDINGS: Lateral medial and spot compression MLO views were performed and are negative. ULTRASOUND FINDINGS: Complete sonographic evaluation of all 4 quadrants and retroareolar region was p erformed. Ultrasound of the left breast demonstrated a benign cyst at 6:00 1 cm from the nipple qian suring 4 x 2 x 4 mm. It contains a single thin septation and does not correlate with the original rafi mographic finding. No solid mass or shadowing. IMPRESSION: Negative mammogram and negative left breast ultrasound with a single benign 4 mm cyst. Follow up recommendation: Routine yearly BI-RADS Category 2: Benign. A "normal" or negative report should not discourage follow up or biopsy of a clinically significant f inding. A written summary of these findings will be mailed to the patient. The patient will be entered into a mammography reporting system which will generate a reminder letter for the patient's next appointmen t at the appropriate interval. According to the [employer], yearly mammograms are recommended starting at age 40 and continuing as long as a woman is in good health. Breast MRI is recommended for women with an jim roximately 20-25% or greater lifetime risk of breast cancer, including women with a strong family his tory of breast or ovarian cancer and women who have been treated for Hodgkin's disease. Signer Name: Gurvinder Mojica MD Signed: 01/20/2020 10:06 AM Workstation Name: [id number]
--- NOTE | 2020-01-20 10:18 | Ultrasound Report ---
LEFT DIGITAL DIAGNOSTIC MAMMOGRAM WITH CAD 01/20/2020 LEFT COMPLETE BREAST ULTRASOUND INDICATION: Recall for asymmetry. -Abn Mammo TECHNIQUE: Digital left mammographic imaging was performed. Spot compression views were obtained. Com plete ultrasound of all four (4) quadrants was performed. This examination was interpreted with the b enefit of Computer-Aided Detection (CAD) analysis. COMPARISON: 01/06/2020 FINDINGS: Breast Density: The breasts are heterogeneously dense, which may obscure small masses. MAMMOGRAPHIC FINDINGS: Lateral medial and spot compression MLO views were performed and are negative. ULTRASOUND FINDINGS: Complete sonographic evaluation of all 4 quadrants and retroareolar region was p erformed. Ultrasound of the left breast demonstrated a benign cyst at 6:00 1 cm from the nipple measu ring 4 x 2 x 4 mm. It contains a single thin septation and does not correlate with the original mammo graphic finding. No solid mass or shadowing. IMPRESSION: Negative mammogram and negative left breast ultrasound with a single benign 4 mm cyst. Follow up recommendation: Routine yearly BI-RADS Category 2: Benign. A "normal" or negative report should not discourage follow up or biopsy of a clinically significant f inding. A written summary of these findings will be mailed to the patient. The patient will be entered into a mammography reporting system which will generate a reminder letter for the patient's next appointmen t at the appropriate interval. According to the [employer], yearly mammograms are recommended starting at age 40 and continuing as long as a woman is in good health. Breast MRI is recommended for women with an appr oximately 20-25% or greater lifetime risk of breast cancer, including women with a strong family hist ory of breast or ovarian cancer and women who have been treated for Hodgkin's disease. Signer Name: Gurvinder Mojica MD Signed: 01/20/2020 10:14 AM Workstation Name: [id number]
== END 2020-01-20 08:42 | disposition home or self-care (01) ==
LOC: SPVWC 08:41
PROVIDERS: ATTEND Internal Medicine
DX: N60.02 Solitary cyst of left breast (principal)

== ENCOUNTER 2020-12-04 08:12 | Outpatient (CLI) | payer BC ==
[2020-12-04 08:42] LABS: Basophils % (Auto) 1.2 % (0.0-1.8); Eosinophils # (Auto) 0.1 K/mm3 (0.0-0.4); Eosinophils % (Auto) 1.6 % (0.0-4.3); Hemoglobin 13.2 gm/dl (10.1-14.3); Lymphocytes # (Auto) 1.4 K/mm3 (1.2-5.4); Lymphocytes % (Auto) 36.5 % (13.4-35.0); Mean Corpuscular HGB Conc 34 % (30-34); Mean Corpuscular Volume 90 fl (79-97); Monocytes # (Auto) 0.3 K/mm3 (0.0-0.8); Monocytes % (Auto) 8.7 % (0.0-7.3); Platelet Count 226 K/mm3 (140-440); Red Blood Count 4.32 M/mm3 (3.65-5.03); Red Cell Distribution Width 12.9 % (13.2-15.2)
[2020-12-04 09:06] LABS: Alanine Aminotransferase 22 units/L (7-56); Albumin 4.4 g/dL (3.9-5); BUN/Creatinine Ratio 18; Blood Urea Nitrogen 14 mg/dL (7-17); Calcium 9.2 mg/dL (8.4-10.2); HDL Cholesterol 62 mg/dL (40-59); Hemolysis Index 5; LDL Cholesterol,Direct 143 mg/dL (50-130)
== END 2020-12-04 08:13 | disposition home or self-care (01) ==
LOC: LAB 08:12 → EDSTATUS 08:18
PROVIDERS: ATTEND Internal Medicine
DX: Z00.00 Encounter for general adult medical examination without abnormal findings (principal)
CPT/HCPCS: 36415; 80053; 80061; 82306; 84443; 85025

== ENCOUNTER 2021-01-06 14:40 | Outpatient (CLI) | payer BC | END 2021-01-06 14:41 | disposition home or self-care (01) | LOC: SPVWC 14:40 | PROVIDERS: ATTEND Internal Medicine | DX: Z12.31 Encounter for screening mammogram for malignant neoplasm of breast (principal); N64.89 Other specified disorders of breast | CPT/HCPCS: 77067 ==

== ENCOUNTER 2021-01-12 16:06 | Outpatient (CLI) | payer BC ==
[2021-01-12 17:15] LABS: Hepatitis B Surface Antigen Non-Reactive (Negative); Hepatitis C Virus Antibody Non-Reactive (NonReactive)
== END 2021-01-12 16:07 | disposition home or self-care (01) ==
LOC: LAB 16:06
PROVIDERS: ATTEND Obstetrics & Gynecology
DX: Z01.419 Encounter for gynecological examination (general) (routine) without abnormal findings (principal); Z11.3 Encounter for screening for infections with a predominantly sexual mode of transmission
CPT/HCPCS: 36415; 80074; 82607; 82670; 86592; 86689

== ENCOUNTER 2022-01-04 08:32 | Outpatient (CLI) | payer BC ==
[2022-01-04 09:13] LABS: Basophils % (Auto) 1.2 % (0.0-1.8); Eosinophils # (Auto) 0.1 K/mm3 (0.0-0.4); Eosinophils % (Auto) 1.6 % (0.0-4.3); Hematocrit 40.2 % (30.3-42.9); Hemoglobin 13.1 gm/dl (10.1-14.3); Lymphocytes # (Auto) 1.4 K/mm3 (1.2-5.4); Mean Corpuscular HGB Conc 33 % (30-34); Mean Corpuscular Volume 89 fl (79-97); Monocytes # (Auto) 0.4 K/mm3 (0.0-0.8); Monocytes % (Auto) 9.1 % (0.0-7.3); Platelet Count 240 K/mm3 (140-440); Red Cell Distribution Width 13.6 % (13.2-15.2)
[2022-01-04 09:33] LABS: Alanine Aminotransferase 19 units/L (7-56); Albumin 4.4 g/dL (3.9-5); BUN/Creatinine Ratio 13; Blood Urea Nitrogen 10 mg/dL (7-17); Calcium 9.7 mg/dL (8.4-10.2); Chol/HDL Ratio 3.56 %; HDL Cholesterol 58 mg/dL (40-59); Hemolysis Index 3; LDL Cholesterol,Direct 143 mg/dL (50-130)
[2022-01-04 09:44] LABS: Free T4 (Free Thyroxine) 1.16 ng/dL (0.76-1.46)
== END 2022-01-04 08:33 | disposition home or self-care (01) ==
LOC: LAB 08:32
PROVIDERS: ATTEND Internal Medicine
DX: Z00.00 Encounter for general adult medical examination without abnormal findings (principal); E03.9 Hypothyroidism, unspecified; E55.9 Vitamin D deficiency, unspecified
CPT/HCPCS: 36415; 80053; 80061; 82306; 84439; 84443; 85025

== ENCOUNTER 2022-01-11 13:47 | Outpatient (CLI) | payer BC ==
--- NOTE | 2022-01-13 08:37 | Mammography Report ---
DIGITAL SCREENING MAMMOGRAM WITH CAD, 01/11/2022 CLINICAL INFORMATION / INDICATION: Routine screening TECHNIQUE: Digital bilateral 2D mammography was obtained in the craniocaudal and mediolateral obliqu e projections. This examination was interpreted with the benefit of Computer-Aided Detection analysis . COMPARISON: 01/06/2021 and priors FINDINGS: Breast Density: The breasts are heterogeneously dense, which may obscure small masses. No dominant mass, suspicious calcifications, or architectural distortion in the right breast. On MLO view of the left breast in the mid depth directly posterior to the nipple, a new 14 mm irregul ar density is seen. IMPRESSION: No asymmetric density on the left Follow up recommendation: Left spot compression views and ultrasound if needed BI-RADS Category 0: INCOMPLETE. Needs additional imaging evaluation and/or prior mammograms for niurka sommer. A "normal" or negative report should not discourage follow up or biopsy of a clinically significant f inding. A written summary of these findings will be mailed to the patient. The patient will be entered into a mammography reporting system which will generate a reminder letter for the patient's next appointmen t at the appropriate interval. The [employer] recommends yearly mammograms starting at age 40 and continuing as l frank as a woman is in good health. Breast MRI is recommended for women with an approximate 20-25% or greater lifetime risk of breast cancer, including women with a strong family history of breast or ova pricilla cancer or who have been treated for Hodgkin's disease. Signer Name: Dontrell Powers MD Signed: 01/13/2022 8:32 AM Workstation Name: [id number]
== END 2022-01-11 13:48 | disposition home or self-care (01) ==
LOC: EEVIPCON 13:47 → SPVWC 13:47
PROVIDERS: ATTEND Internal Medicine
DX: Z12.31 Encounter for screening mammogram for malignant neoplasm of breast (principal)
CPT/HCPCS: 77067

== ENCOUNTER 2022-02-11 14:14 | Outpatient (CLI) | payer BC ==
--- NOTE | 2022-02-11 15:29 | Mammography Report ---
DIGITAL DIAGNOSTIC MAMMOGRAM WITH CAD , 02/11/2022 CLINICAL INFORMATION / INDICATION: Patient presents for evaluation of new left breast asymmetry ident ified on recent screening mammogram. TECHNIQUE: Digital left mammographic imaging was performed. Spot compression views were obtained. This examination was interpreted with the benefit of Computer-aided Detection analysis. COMPARISON: Recent mammogram 01/11/2022, and older mammograms dating back to 2015 FINDINGS: Breast Density: The breasts are heterogeneously dense, which may obscure small masses. No dominant mass, suspicious calcifications or architectural distortion in the left breast. Spot compression views do not show persistence of the questionable asymmetry noted on recent screenin g mammogram. The mammogram appears unchanged compared with older exams. IMPRESSION: No mammographic evidence of malignancy. Follow up recommendation: Routine yearly BI-RADS Category 1: NEGATIVE. A "normal" or negative report should not discourage follow up or biopsy of a clinically significant f inding. A written summary of these findings will be mailed to the patient. The patient will be entered into a mammography reporting system which will generate a reminder letter for the patient's next appointmen t at the appropriate interval. According to the [employer], yearly mammograms are recommended starting at age 40 and continuing as long as a woman is in good health. Breast MRI is recommended for women with an jim roximately 20-25% or greater lifetime risk of breast cancer, including women with a strong family his tory of breast or ovarian cancer and women who have been treated for Hodgkin's disease. Signer Name: Shaunna Red MD Signed: 02/11/2022 3:24 PM Workstation Name: [email or web address]
== END 2022-02-11 14:15 | disposition home or self-care (01) ==
LOC: MAMMO 14:14
PROVIDERS: ATTEND Internal Medicine
DX: R92.8 Other abnormal and inconclusive findings on diagnostic imaging of breast (principal); R92.2 Inconclusive mammogram

== ENCOUNTER 2022-03-08 08:35 | Outpatient (CLI) | payer BC ==
[2022-03-08 09:07] LABS: Basophils # (Auto) 0.1 K/mm3 (0.0-0.1); Basophils % (Auto) 1.2 % (0.0-1.8); Eosinophils # (Auto) 0.1 K/mm3 (0.0-0.4); Eosinophils % (Auto) 1.7 % (0.0-4.3); Hematocrit 40.2 % (30.3-42.9); Hemoglobin 12.9 gm/dl (10.1-14.3); Lymphocytes # (Auto) 1.7 K/mm3 (1.2-5.4); Lymphocytes % (Auto) 37.7 % (13.4-35.0); Mean Corpuscular HGB Conc 32 % (30-34); Mean Corpuscular Volume 90 fl (79-97); Monocytes # (Auto) 0.5 K/mm3 (0.0-0.8); Monocytes % (Auto) 10.5 % (0.0-7.3); Platelet Count 235 K/mm3 (140-440); Red Blood Count 4.46 M/mm3 (3.65-5.03); Red Cell Distribution Width 13.1 % (13.2-15.2)
== END 2022-03-08 08:36 | disposition home or self-care (01) ==
LOC: LAB 08:35
PROVIDERS: ATTEND Internal Medicine
DX: D72.819 Decreased white blood cell count, unspecified (principal)
CPT/HCPCS: 36415; 85025

== ENCOUNTER 2022-04-07 10:38 | Emergency (ER) | payer BC ==
[2022-04-07 13:48] VITALS: BP 122/65
[2022-04-07] MEDS ORDERED: BENZONATATE 100 MG CAP PO ONE (15:35)
--- NOTE | 2022-04-07 15:36 | XRay Report ---
XR chest routine 2V INDICATION / CLINICAL INFORMATION: cough. COMPARISON: 05/24/2021 FINDINGS: SUPPORT DEVICES: None. HEART /PULMONARY VASCULATURE: No significant abnormality. LUNGS / PLEURA: No significant pulmonary or pleural abnormality. No pneumothorax. ADDITIONAL FINDINGS: No significant additional findings. IMPRESSION: 1. No acute findings. Signer Name: Kevin Victor MD Signed: 04/07/2022 3:31 PM Workstation Name: [id number]
--- NOTE | 2022-04-07 16:19 | Emergency Department Report ---
- General Chief Complaint: Upper Respiratory Infection Stated Complaint: SINUS/BACK PAIN/FAST HEART BEAT Time Seen by Provider: 04/07/22 14:57 Source: patient Mode of arrival: Ambulatory Limitations: No Limitations - History of Present Illness Initial Comments: This is a 56-year-old female nontoxic, well nourished in appearance, no acute signs of distress presents to the ED with c/o of productive cough, sinus pressure, rhinorrhea, nasal congestion x several days. Patient stated that during coughing episode has sharp back pains but only during cough. Patient describes productive cough as yellow mucus production. Patient denies any sick contacts. Patient denies any recent travels, long car, recent hospital stays. Patient denies any calf pain or calf tenderness. Patient denies any chest pain, short of breath, fever, chills, nausea, vomiting, hemoptysis, numbness, tingling, headache or stiff neck. Patient denies any allergies. MD Complaint: cough, rhinorrhea, nasal congestion, sinus pain -: days(s) Severity: mild Severity scale (0 -10): 3 Quality: sharp Consistency: intermittent Improves With: rest Worsens With: other (Coughing) Associated Symptoms: rhinorrhea, nasal congestion, cough. denies: fever, chills, myalgias, diaphoresis, headache, sore throat, stiff neck, chest pain, shortness of breath, abdominal pain, nausea, vomiting, diarrhea, dysuria, rash, confusion, right sweats, weight loss, epistaxis, hoarseness, ear pain Treatments Prior to Arrival: none - Related Data Home Medications Medication Instructions Recorded Confirmed Last Taken ALPRAZolam [Xanax] 0.25 mg PO PRN PRN 11/21/13 06/13/17 06/29/16 Omeprazole [PriLOSEC] 40 mg PO QDAY 11/21/13 06/14/17 06/14/17 07:00 Integra Plus Capsule 1 tab PO DAILY 07/19/16 06/13/17 06/13/17 Cholecalciferol Vit D3 [Vitamin D3] 1,000 unit PO QDAY 06/13/17 06/13/17 06/13/17 Cod Liver Oil 1 each PO DAILY 06/13/17 06/13/17 06/13/17 Docusate Sodium [Colace] 100 mg PO DAILY 08/06/2206/13/17 06/13/17 Multivitamin Tab [Multiple Vitamin 1 each PO QDAY 06/13/17 06/13/17 06/13/17 TAB (Theragran)] Previous Rx's Medication Instructions Recorded Last Taken Type Ibuprofen [Motrin] 800 mg PO Q8HR PRN #60 tablet 06/14/17 Unknown Rx oxyCODONE /ACETAMINOPHEN [Percocet 1 tab PO Q6HR PRN #30 tablet 06/14/17 Unknown Rx 5/325] Metoprolol [Lopressor] 12.5 mg PO BID #30 tablet 05/20/18 Unknown Rx Ibuprofen [Motrin 800 MG tab] 800 mg PO Q8HR PRN #20 tablet 05/22/21 Unknown Rx traMADoL [Ultram] 50 mg PO Q6HR PRN #10 tablet 05/22/21 Unknown Rx Amoxicillin/K Clav Tab [Augmentin 1 tab PO Q12HR #20 tab 04/07/22 Unknown Rx 875 mg] Benzonatate [Tessalon Perles] 100 mg PO Q8HR PRN #12 cap 04/07/22 Unknown Rx Allergies Allergy/AdvReac Type Severity Reaction Status Date / Time No Known Allergies Allergy Verified 01/02/22 23:23 ED Review of Systems ROS: Stated complaint: SINUS/BACK PAIN/FAST HEART BEAT Other details as noted in HPI Comment: All other systems reviewed and negative Constitutional: denies: chills, fever Eyes: denies: eye pain, eye discharge, vision change ENT: congestion. denies: ear pain, throat pain Respiratory: cough. denies: shortness of breath, wheezing Cardiovascular: denies: chest pain, palpitations Endocrine: no symptoms reported Gastrointestinal: denies: abdominal pain, nausea, diarrhea Genitourinary: denies: urgency, dysuria, discharge Musculoskeletal: denies: back pain, joint swelling, arthralgia Skin: denies: rash, lesions Neurological: denies: headache, weakness, paresthesias Psychiatric: denies: anxiety, depression Hematological/Lymphatic: denies: easy bleeding, easy bruising ED Past Medical Hx - Past Medical History Hx Hypertension: No Hx Heart Attack/AMI: No Hx GERD: Yes Hx Liver Disease: No Hx Renal Disease: No Hx Sickle Cell Disease: No Hx Headaches / Migraines: Yes Hx Seizures: No Hx Asthma: No Hx COPD: No Additional medical history: hypothyroidism and anxiety - Surgical History Hx Pacemaker: No Hx Internal Defibrillator: No Additional Surgical History: , uterine laparoscopy, hemorrhoidectomy - Social History Smoking Status: Never Smoker - Medications Home Medications: Home Medications Medication Instructions Recorded Confirmed Last Taken Type ALPRAZolam [Xanax] 0.25 mg PO PRN PRN 11/21/13 06/13/17 06/29/16 History Omeprazole [PriLOSEC] 40 mg PO QDAY 11/21/13 06/14/17 06/14/17 07:00 History Integra Plus Capsule 1 tab PO DAILY 07/19/16 06/13/17 06/13/17 History Cholecalciferol Vit D3 [Vitamin D3] 1,000 unit PO QDAY 06/13/17 06/13/17 06/13/17 History Cod Liver Oil 1 each PO DAILY 06/13/17 06/13/17 06/13/17 History Docusate Sodium [Colace] 100 mg PO DAILY 06/13/17 06/13/17 06/13/17 History Multivitamin Tab [Multiple Vitamin 1 each PO QDAY 06/13/17 06/13/17 06/13/17 History TAB (Theragran)] Ibuprofen [Motrin] 800 mg PO Q8HR PRN #60 tablet 06/14/17 Unknown Rx oxyCODONE /ACETAMINOPHEN [Percocet 1 tab PO Q6HR PRN #30 tablet 06/14/17 Unknown Rx 5/325] Metoprolol [Lopressor] 12.5 mg PO BID #30 tablet 05/20/18 Unknown Rx Ibuprofen [Motrin 800 MG tab] 800 mg PO Q8HR PRN #20 tablet 05/22/21 Unknown Rx traMADoL [Ultram] 50 mg PO Q6HR PRN #10 tablet 05/22/21 Unknown Rx Amoxicillin/K Clav Tab [Augmentin 1 tab PO Q12HR #20 tab 04/07/22 Unknown Rx 875 mg] Benzonatate [Tessalon Perles] 100 mg PO Q8HR PRN #12 cap 04/07/22 Unknown Rx ED Physical Exam - General Limitations: No Limitations General appearance: alert, in no apparent distress - Head Head exam: Present: atraumatic, normocephalic - Eye Eye exam: Present: normal appearance - ENT ENT exam: Present: normal exam, normal orophraynx - Neck Neck exam: Present: normal inspection, full ROM. Absent: tenderness, meningismus, lymphadenopathy - Respiratory Respiratory exam: Present: normal lung sounds bilaterally. Absent: respiratory distress, wheezes, rales, rhonchi, stridor, chest wall tenderness, accessory muscle use, decreased breath sounds, prolonged expiratory - Cardiovascular Cardiovascular Exam: Present: regular rate, normal rhythm, normal heart sounds. Absent: bradycardia, tachycardia, irregular rhythm, systolic murmur, diastolic murmur, rubs, gallop - GI/Abdominal GI/Abdominal exam: Present: soft. Absent: distended, tenderness - Extremities Exam Extremities exam: Present: full ROM - Back Exam Back exam: Present: normal inspection, full ROM. Absent: tenderness, CVA tenderness (R), CVA tenderness (L), muscle spasm, paraspinal tenderness, vertebral tenderness, rash noted - Neurological Exam Neurological exam: Present: alert, oriented X3, normal gait - Psychiatric Psychiatric exam: Present: normal affect, normal mood - Skin Skin exam: Present: warm, dry, intact, normal color. Absent: rash - Other Other exam information: Psoitive frontal sinus tenderness. ED Course Vital Signs 04/07/22 13:46 Temperature 98.2 F Pulse Rate 73 Respiratory 16 Rate Blood Pressure 122/65 [Left] O2 Sat by Pulse 100 Oximetry - Reevaluation(s) Reevaluation #1: 04/07/22 16:17 Patient is speaking in full sentences with no signs of distress noted. ED Medical Decision Making - Radiology Data [facility] [address] [place] [address] XRay Report Signed Patient: MARIA GUADALUPE MONSON MR#: [id number] : 1965 Acct:[id number] Age/Sex: 56 / F ADM Date: 04/07/22 Loc: ED Attending Dr: Ordering Physician: MILY PETERSON NP Date of Service: 04/07/22 Procedure(s): XR chest routine 2V Accession Number(s): [id number] cc: MILY PETERSON NP Fluoro Time In Minutes: XR chest routine 2V INDICATION / CLINICAL INFORMATION: cough. COMPARISON: 05/24/2021 FINDINGS: SUPPORT DEVICES: None. HEART /PULMONARY VASCULATURE: No significant abnormality. LUNGS / PLEURA: No significant pulmonary or pleural abnormality. No pneumothorax. ADDITIONAL FINDINGS: No significant additional findings. IMPRESSION: 1. No acute findings. Signer Name: Toño Horn MD Signed: 04/07/2022 3:31 PM Workstation Name: [id number] Transcribed By: CHERIE Dictated By: TOÑO HORN MD Electronically Authenticated By: TOÑO HORN MD Signed Date/Time: 04/07/221530 DD/ 30 TD/TT: - Medical Decision Making This is a 56-year-old female that presents with viral bronchitis and sinusitis. Patient is stable and was examined by me. Chest x-ray has been obtained and dictated by radiologist with normal exam. Patient is notified of x-ray results with no questions noted. Patient does not meet clinical concerns of COVID-19 but patient was instructed and educated on signs and symptoms and to self quarantine and seek medical attention as soon as possible if symptoms does occur. Patient was instructed to increase hydration, rest and take Motrin for fever episodes. Patient received motrin and tesslone perrls in the ED. Vitals stable. Patient is nonfebrile and normal heart rate. Patient was instructed Follow-up with a primary care doctor in 3-5 days or if symptoms worsen and continue return to emergency room as soon as possible. At time time of discharge, the patient does not seem toxic or ill in appearance. No acute signs of distress noted. Patient agrees to discharge treatment plan of care. No further questions noted by the patient.nt. Critical care attestation.: If time is entered above; I have spent that time in minutes in the direct care of this critically ill patient, excluding procedure time. ED Disposition Clinical Impression: Viral bronchitis, Sinusitis Disposition: 01 HOME / SELF CARE / HOMELESS Is pt being admited?: No Does the pt Need Aspirin: No Condition: Stable Instructions: Chronic Bronchitis (ED), Sinusitis, Adult, [id number] Additional Instructions: Follow-up with a primary care doctor in 3-5 days or if symptoms worsen and continue return to emergency room as soon as possible. Prescriptions: Amoxicillin/K Clav Tab [Augmentin 875 mg] 1 tab PO Q12HR #20 tab Benzonatate [Tessalon Perles] 100 mg PO Q8HR PRN #12 cap PRN Reason: Cough Referrals: PRIMARY CARE, [Referring] - 3-5 Days CARBUCCIA,SILVIO, MD [Staff Physician] - 3-5 Days Forms: Work/School Release Form(ED) Time of Disposition: 16:19
== END 2022-04-07 17:30 | disposition home or self-care (01) ==
LOC: ED 10:38
DX: J20.8 Acute bronchitis due to other specified organisms (principal); J32.9 Chronic sinusitis, unspecified; K21.9 Gastro-esophageal reflux disease without esophagitis; G43.909 Migraine, unspecified, not intractable, without status migrainosus; Z79.899 Other long term (current) drug therapy
CPT/HCPCS: 71046; 99283

== ENCOUNTER 2022-05-31 14:05 | Outpatient (CLI) | payer BC ==
--- NOTE | 2022-05-31 16:14 | XRay Report ---
CHEST 2 VIEWS INDICATION / CLINICAL INFORMATION: R07.89. COMPARISON: 04/07/2022 FINDINGS: SUPPORT DEVICES: None. HEART / MEDIASTINUM: No significant abnormality. LUNGS / PLEURA: No significant pulmonary or pleural abnormality. No pneumothorax. ADDITIONAL FINDINGS: No significant additional findings. IMPRESSION: 1. No acute findings. Signer Name: Tino Cruz MD Signed: 05/31/2022 4:09 PM Workstation Name: [id number]
== END 2022-05-31 14:06 | disposition home or self-care (01) ==
LOC: XRAY 14:05
PROVIDERS: ATTEND Internal Medicine
DX: R07.89 Other chest pain (principal)
CPT/HCPCS: 71046

== ENCOUNTER 2022-07-20 15:50 | Outpatient (CLI) | payer BC ==
--- NOTE | 2022-07-20 17:45 | XRay Report ---
Left foot 3 views INDICATION: Pain FINDINGS: MTP joints and IP joints appear normal. Midfoot alignment appears normal. No acute fracture or dislocation. Signer Name: Mauricio Nichols MD Signed: 07/20/2022 5:41 PM Workstation Name: [id number]
== END 2022-07-20 15:51 | disposition home or self-care (01) ==
LOC: LAB 15:50
PROVIDERS: ATTEND Internal Medicine
DX: M79.672 Pain in left foot (principal)